=== PATIENT | female | born 1955 | race Caucasian/White ===

== ENCOUNTER → 2018-08-28 | Outpatient (CLI) | payer OTHER ==
[~2018-08-28] MED LIST: ALBU90OI INH; Ativan1 MG PO; BENZ100A PO; COMBIVENT RESPIM4 GM INH; Flonase 0.05% N16 GM; GABA800 PO; LORA10 PO; Neurontin 300300 MG PO; Nitroglycerin0.4 MG SL; SPACE CHAMBER1 EACH MC; TIOT18 INH; TRAZ100 PO; VENL150ER PO; WARF2.5 PO; WARF5 PO; ZIPR80 PO
[2018-08-28 13:10] LABS: International Normalized Ratio 3.56; Prothrombin Time Results 33.6 Sec (9.7-11.5)
== END ==
LOC: LAB EV 12:08 → LAB SHORT 12:08
PROVIDERS: Nurse Practitioner
DX: I48.91 Unspecified atrial fibrillation (principal)
CPT/HCPCS: 85610